=== PATIENT | male | born 1975 | race African-American/Black ===

== ENCOUNTER 2017-10-16 22:31 | Emergency (ER) | payer OTHER ==
[2017-10-16 22:38] VITALS: BP 128/79; PULSE 91; TEMP 97.9; BMI 30.8
[2017-10-17] MEDS ORDERED: METHOCARBAMOL 500 MG TABLET PO ONE (01:39)
[2017-10-17] MEDS ORDERED: KETOROLAC TROMETHAMINE 60 MG/2 ML VIAL IM ONE (01:39)
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
[2017-10-17] MEDS ORDERED: METHOCARBAMOL 500 MG TABLET ONE (01:55)
[2017-10-17] MEDS ORDERED: KETOROLAC TROMETHAMINE 60 MG/2 ML VIAL ONE (01:55)
== END 2017-10-17 03:51 | disposition home or self-care (01) ==
LOC: JER 22:31
PROC: 3E0233Z Introduction of Anti-inflammatory into Muscle, Percutaneous Approach (ICD-10-PCS; principal; 2017-10-16)
DX: M62.830 Muscle spasm of back (principal)
CPT/HCPCS: 72131-TC; 99282-25